=== PATIENT | male | born 1950 | race Caucasian/White ===

== ENCOUNTER 2023-08-17 12:28 | Outpatient (CLI) | payer OTHER, SELFPAY ==
--- NOTE | ~2023-08-17 | PE_ITS ---
EXAMINATION: PET_PETPSMAST_PT DATE: 08/17/2023 15:20 INDICATION: Prostate cancer TECHNIQUE: 9.4 mCi of pipflufolastat F-18 (18-F-DCFPyL) was administered i.v. Low dose computed rosalina graphy (CT) images were acquired from the base of the brain to the base of the brain to the proximal thighs for attenuation correction and anatomic localization. Positron emission tomography (PET) image s were acquired in the same distribution beginning 90 minutes after injection. Images including fused PET/CT images were reconstructed in axial, coronal, and sagittal planes. Automated exposure control technique was employed. The dose-length product was 1203.34mGy-cm. COMPARISON: Bone scan and CT abdomen and pelvis dated 01/26/2017 FINDINGS: Head/neck: Typical pattern of symmetric physiologic increased activity in the lacrimal, parotid and submandibula r glands as well as along the mucosa of the nasal and oral cavities, the raj-, naso- and hypopharynx, the glottis and esophagus. There is also a typical pattern of symmetric tiny foci of mild likely phy siologic neural ganglia uptake at a few bilateral cervical neural foramina. There is asymmetric mild uptake in the right thyroid lobe with maximal SUV of 3.7 peripheral to a 2.4 similar hypodense right thyroid nodule. No pathologically enlarged cervical lymphadenopathy or other suspicious foci of incre ased uptake in the visualized head or neck. Chest: Respiratory motion in the lungs. No suspicious pulmonary nodules, pneumonia, pulmonary edema or pleur al effusion. Heart size is normal. Atherosclerotic coronary artery calcification. Aortic valve calcif ic location. No pericardial effusion. Thoracic aorta is normal in caliber. No pathologically enlarged or PSMA avid thoracic lymphadenopathy. Abdomen/pelvis/proximal thighs: Physiologic renal accumulation and excretion of activity in the kidneys, bladder and along portions o f ureters. 4.4 cm exophytic cyst arising from the posterior medial lower pole of the right kidney. Po stoperative change of prior prostatectomy with a few surgical clips at the anterior prostatectomy bed . There is mild uptake in the region of the prostatectomy bed with maximal SUV of 7.5 without discret e nodular radiologic correlate. The soft tissues and surgical clips appear unchanged on CT when ericka red with the prior imaging. Additional surgical clips the left and right hemipelvis likely related to associated bilateral pelvic lymph node dissections. Normal degree and slightly heterogenous pattern of increased uptake throughout the liver and spleen without radiologic correlate or dominant PSMA prachi d lesion. The gallbladder, pancreas and bilateral adrenal glands are normal. Moderate uptake scattere d throughout the bowels with typical duodenal and proximal jejunal predominance and without radiologi c correlate, also likely physiologic. There is prominent scattered colonic diverticulosis with a sigm oid predominance without adjacent inflammatory change to suggest diverticulitis. No other abnormal fo ci of increased uptake or pathologically enlarged lymphadenopathy in the abdomen, pelvis or proximal thighs. 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 Severe spondylosis scattered throughout the cervical, thoracic a nd lumbar spine. No suspicious lytic, blastic or abnormally PSMA avid bone lesions identified. IMPRESSION: 1. Postoperative change of prior prostatectomy and bilateral pelvic lymph node dissections. There is mild uptake at the prostatectomy bed without appreciable change in on CT imaging. This could be due t o very early local recurrence or artifact from a minimal amount of urine activity. No other suspiciou s PSMA avid bone or soft tissue lesions suspicious for metastatic disease. 2. Mild uptake in the right thyroid lobe peripheral to an indeterminate 2.4 cm
== END 2023-08-17 12:29 | disposition home or self-care (01) ==
PROVIDERS: PCP Family Medicine Adolescent Medicine; Visit Provider Urology
DX: C61 Malignant neoplasm of prostate (principal); Z90.79 Acquired absence of other genital organ(s); Z98.890 Other specified postprocedural states; E04.1 Nontoxic single thyroid nodule
CPT/HCPCS: 78815; A9595

== ENCOUNTER 2023-08-31 10:02 | Outpatient (CLI) | payer OTHER, SELFPAY ==
--- NOTE | ~2023-08-31 | US_ITS ---
EXAMINATION: US thyroid DATE: 08/31/2023 10:19 INDICATION: Nontoxic single thyroid nodule. TECHNIQUE: Multiple ultrasound images of the thyroid were obtained. COMPARISON: PET/CT 08/17/2023 FINDINGS: The right thyroid lobe measures 5.5 x 2.4 x 1.7 cm. The left thyroid lobe measures 3.9 x 1.3 x 1.4 c m. In the right thyroid lobe, there is a 2.9 cm solid, hypoechoic, wider than tall nodule with irreg ular margin without echogenic foci (TI-RADS TR4). In the right thyroid lobe, there is a 10 mm solid, hyperechoic, wider than tall nodule with lobulated margin without echogenic foci (TR4). In the left t hyroid lobe, there is a 5 mm solid, hypoechoic, wider than tall nodule with smooth margin without ech ogenic foci (TR4). IMPRESSION: 1. Multinodular goiter. Ultrasound-guided fine-needle aspiration of the 2.9 cm right thyroid nodule i s recommended. Reviewed, dictated and finalized at location A. ING MECHANIC IMPRESSION: 1. Multinodular goiter. Ultrasound-guided fine-needle aspiration of the 2.9 cm right thyroid nodule is recommended.
== END 2023-08-31 10:03 ==
PROVIDERS: PCP Urology; Visit Provider Urology
DX: E04.2 Nontoxic multinodular goiter (principal)
CPT/HCPCS: 76536

== ENCOUNTER 2023-10-13 12:03 | Outpatient (CLI) | payer OTHER, SELFPAY ==
--- NOTE | ~2023-10-13 | US_ITS ---
EXAMINATION: US FNA w image guidance DATE: 10/13/2023 13:32 INDICATION: Nontoxic single right thyroid nodule TECHNIQUE: A time-out was performed to verify the patient's name, date of , and procedure to be performed . The procedure and its benefits and risks were discussed with the patient. Risks specifically discus sed included bleeding and infection. The patient understood the risks and agreed to proceed. The neck was prepped and draped in the usual sterile manner. 3 mL 1% lidocaine was used for local anesthesia . 9 passes were made with a 25G needle into the lesion. Appropriate needle location was documented with continuous sonographic guidance. A sterile bandage was applied. There were no immediate compli cations. FINDINGS: Grayscale ultrasound images demonstrate biopsy needles advanced into a 2.8 cm TI RADS 4 solid right t hyroid nodule. IMPRESSION: 1. Successful ultrasound-guided fine needle aspiration of the 2.8 cm TI RADS 4 right thyroid nodule of concern. Reviewed, dictated and finalized at location A. CTOR OF SAFETY AND SECURITY
== END 2023-10-13 12:04 | disposition home or self-care (01) ==
PROVIDERS: PCP Family Medicine Adolescent Medicine; Visit Provider Family Medicine Adolescent Medicine
DX: E04.1 Nontoxic single thyroid nodule (principal)
CPT/HCPCS: 10005; 88172; 88173; 88305

== ENCOUNTER 2025-04-19 12:36 | Outpatient (CLI) | payer OTHER, SELFPAY ==
--- NOTE | ~2025-04-19 | PE_ITS ---
EXAMINATION: PET_PETPSMAST_PT DATE: 04/19/2025 15:09 INDICATION: Prostate cancer TECHNIQUE: 5.27 mCi of Illucix Ga-68(70-Pc-lrtcoddtvz) was administered i.v. Low dose computed tomog gay (CT) images were acquired from the base of the brain to the base of the brain to the proximal t highs for attenuation correction and anatomic localization. Positron emission tomography (PET) images were acquired in the same distribution beginning 88 minutes after injection. Images including fused PET/CT images were reconstructed in axial, coronal, and sagittal planes. Automated exposure control t echnique was employed. The dose-length product was 1306.91mGy-cm. COMPARISON: 08/17/2023 FINDINGS: Head/neck: Typical pattern of symmetric physiologic increased activity in the lacrimal, parotid and submandibula r glands as well as along the mucosa of the nasal and oral cavities, pharynx and hypopharynx. Again s een is mild mild uptake with maximal SUV of 4.2 in the right thyroid lobe peripheral to a 2.2 cm hypo dense nodule. No pathologically enlarged cervical lymphadenopathy or other suspicious foci of increas ed uptake in the visualized head or neck. Chest: Mild respiratory motion and mild dependent atelectasis in the bilateral lungs. No suspicious pulmonar y nodules, pneumonia, pulmonary edema or pleural effusion. Heart size is normal. Atherosclerotic aneesh nary artery and aortic valve calcifications. No pericardial effusion. Thoracic aorta is normal in asael iber. No pathologically enlarged or PSMA avid thoracic lymphadenopathy. Abdomen/pelvis/proximal thighs: Physiologic renal accumulation and excretion of activity in the kidneys, decompressed bladder and tabatha ng portions of ureters. Status post prostatectomy with no change in configuration of a few surgical c lips at the prostatectomy bed. Persistent mild uptake with maximal SUV of 7.3 at the prostatectomy be d without discrete nodularity which could represent recurrent disease or minimal urine activity. Norm al degree and slightly heterogenous pattern of increased uptake throughout the liver and spleen witho ut radiologic correlate or dominant PSMA avid lesion. The gallbladder, pancreas and bilateral adrenal glands are normal. Moderate uptake scattered throughout the bowels with typical duodenal and proxima l jejunal predominance and without radiologic correlate, also likely physiologic. Prominent scattered diverticulosis without adjacent from trace stranding to suggest diverticulitis. Surgical clips in th e left and right pelvis consistent with prior pelvic lymph node dissections. No other abnormal foci o f increased uptake or pathologically enlarged lymphadenopathy in the abdomen, pelvis or proximal thig hs. Musculoskeletal: Moderate left-sided and advanced right-sided glenohumeral osteoarthritis. Severe cervical, thoracic a nd lumbar spondylosis. No suspicious lytic, blastic or abnormally PSMA avid bone lesions. IMPRESSION: 1. Status post prostatectomy and bilateral pelvic lymph node dissections. Unchanged mild uptake at th e prostatectomy bed without appreciable change on CT imaging. Differential remains clearly localized recurrence versus minimal urine activity. No other lesions suspicious for metastatic disease. 2. No significant change in mild uptake in the right thyroid peripheral to an indeterminate thyroid n odule measuring 2.8 cm at the time of the intervening biopsy on 10/13/2023. Correlate with pathology f rom the biopsy. Reviewed, dictated and finalized at location A. IMPRESSION: 1. Status post prostatectomy and bilateral pelvic lymph node dissections. Uncha nged mild uptake at the prostatectomy bed without appreciable change on CT imag ing. Differential remains clearly localized recurrence versus minimal urine act ivity. No other lesions suspicious for metastatic disease. 2. No significant change in mild uptake in the right thyroid peripheral to an i ndeterminate thyroid nodule measuring 2.8 cm at the time of the intervening bio psy on 10/13/2023. Correlate with pathology from the biopsy.
--- OUTSIDE RECORDS SUMMARY | 2025-04-19 12:46 | XMS_ITS ---
Author Name Yvonne GOMEZ, MRS. Humphreys npal Address [address] [place] [address] Phone [phone] Organization [facility] Care Team Providers Care Rn Otolaryngology Name Role Phone YvonneNikitagabriella Unavailable [phone] BRITTNEE PHILIP Unavailable [phone] Madeline Gill Unavailable [phone] Jonatan Madden Unavailable [phone] Reason for Referral Not Available Allergies, adverse reactions, alerts No known allergies History of medication use Medication Class Instructions Start Date End Date hydroCHLOROthiazide 25 mg Tab TAKE 1 TAB LET BY MOUTH EVERY DAY 2024-06-05 No Data Available Lovastatin 40 mg Tab TAKE 1 TABLET BY MO UT EVERY DAY 2024-06-05 No Data Available Telmisartan 80 mg Tab TAKE 1 AND 1/2 TAB LETS BY MOUTH DAILY 2024-06-05 No Data Available amLODIPine Besylate 10 mg Tab TAKE 1 TAB LET BY MOUTH EVERY DAY 2024-08-31 No Data Available LORazepam 0.5 mg Tab TAKE 1 TABLET BY MO UTH EVERY DAY NEEDED FOR ANXIETY 2024-08-22 No Data Available Sildenafil Citrate 100 mg Tab No Data Available 2023-09 No Data Available Problem List Problem Status Onset Date Resolved Date Synopsis HTN (hypertension) Active 2025-01-16 N/A N/A Skin cancer (melanoma) Active 2025-01-16 N/A N/ A Anxiety Active 2025-01-16 N/A N/A HLD (hyperlipidemia) Active 2025-01-16 N/A N/A Morbidly obese Active 2025-01-16 N/A N/A Encounters Encounters Type Facility Date of Service Diagnosis/Co mplaint Home visit for evaluation and management of new patient requiring medically appropriate examination and low level of medical decision making. If using time, at least 30 minutes total time on encounter [facility] 01/16/2025 Essential (primary) hypertensionMalignant melanoma of skin, unspecifiedAnxiety disorder, unspecifiedHyperlipidemia, unspecifiedMorbid (severe) obesity due to excess caloriesBody mass index (bmi) 38.0-38.9, adult Home visit for evaluation and management of new patient requiring medically appropriate examination and low level of medical decision making. If using time, at least 30 minutes total time on encounter [facility] 01/16/2025 Essential (primary) hypertension Home visit for evaluation and management of new patient requiring medically appropriate examination and low level of medical decision making. If using time, at least 30 minutes total time on encounter [facility] 01/16/2025 Essential (primary) hypertension Home visit for evaluation and management of new patient requiring medically appropriate examination and low level of medical decision making. If using time, at least 30 minutes total time on encounter [facility] 01/16/2025 Essential (primary) hypertension Vital Signs Date of Collection Vitals 2025-01-16 11:45:00 Height - 170.18 cmWe ight - 111.13 kgBody Mass Index (BMI) - 38.37 kg/m2BP Diastolic - 86.0 mm[Hg]BP Systolic - 132.0 mm[Hg]Heart Rate - 69.0 /minRespiratory Rate - 16.0 /minBody Temperature - 36.72 CelO2 % BldC Oximetry - 96.0 % Social History Sex Male History of Procedures Procedures Service Procedure code Service date Servicing provider Phone# Home visit for evaluation and management of new patient requiring medically appropriate examination and low level of medical decision making. If using time, at least 30 minutes total time on encounter [id number] 2025-01-16 No Data Available No Data Availa ble Most recent systolic blood pressure 130 -139 mm Hg 3075F 2025-01-16 No Data Available No Data Availa ble Most recent dystolic blood pressure 80-89 mm Hg 3079F 2025-01-16 No Data Available No Data Availa ble Advance care planning discussion documented in medical record [id number] 2025-01-16 No Data Available No Data Avai nathan Functional Status Functional Category Effective Dates continues to drive 2025-01-16 lives at home alone; independent with AD L's 2025-01-16 Daughter lives nearby and watches mahendra bradley 2025-01-16 Mental Status Status Date no cognitive issues 2025-01-16 Assessments Date of Service Assessments 2025-01-16 11:45:00 HTN (hypertension)Sk in cancer (melanoma)AnxietyHLD (hyperlipidemia)Morbidly obese Plan of Care Date of Service Plans 2025-01-16 11:45:00 PCP Q 6 months follo w up with annual labschronic; controlledcontinue amlodipine 10 mg once daily, Hctz 25 mg once daily and telmisartan 80 mg 1.5 mg once daily.lower lip - radiation treatment started 5appt 01/18/2025 for non healing lesion on right adventism regionmanaged by dermatologydiscussed the use of sunscreen when outsidechronic; stablecontinue lorazepam 0,5 mg once daily PRNmanaged by PCPchronic; stablecontinue lovastatin 40 mg once dailyheart healthy diet; encouraged exercisediscussed diet and exercise Health Concerns Date Concern 2025-01-16 Healthy House Calls is a service that involves a physician or advanced practice provider conducting comprehensive assessments in your patient s home or virtually to address crucial areas such as chronic conditions, quality gaps, social concerns, fall risk prevention, and various screenings. Please note that your patient will remain attributed to you even though they are participating in this service. If you have any questions, please reach out directly to our team at the phone number above.Your patient, Handy Levy, 1950, was seen today for a Healthy House Call visit. Patient read rights and responsibilities and consented to treatment. The purpose of this summary is to update you on the patient's current health status and share any relevant findings from the examination. 2025-01-16 Skin cancer lower li p - first radiation treatment was on 01/05/2025 and next treatment 01/16. Treatments are 3 x a week and he to get a total of 20 treatments. Has an appt on 01/19/2024 for a lesion on the right side of the adventism area.
--- OUTSIDE RECORDS SUMMARY | 2025-04-19 12:46 | XMS_ITS | Clinical Summary ---
Author Organization [facility] Address [address] [place] [address] Care Team Providers Care Family Manager Name Role Phone Zaki Goodrich MD Primary Care Provider + Source Comments [facility]non-owned Affiliates and Associated Physician Practices is amultiple site organization consisting of ambulatory clinics and hospital sitesin [place], [place], [place] and [place]. This disclosure is being madepursuant to the Care Everywhere program and may not contain all information available regarding this patient. Last updated 18.[facility] Allergies No known active allergies Medications * Be aware that medications may not be up to date on this document. Alwaysverify current medications with the patient. losartan - hydrochlorothiazide (HYZAAR) 50-12.5 MG tablet Take 1 Tab by mouth once daily. Active atorvastatin (LIPITOR) 10 MG tablet Take 10 mg by mouth at bedtime. Active nisoldipine CR 24hr (SULAR) 17 MG TB24 Take by mouth once daily. 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 Gender Identity Not on file Sexual Orientation Not on file Last Filed Vital Signs Vital Sign Reading Time Taken Comments Blood Pressure 130/65 12/26/2011 6:34 AM CDT Pulse 63 12/26/2011 6:34 AM CDT Temperature 36.6 C (97.8 F) 12/25/2011 9:01 PM CDT Respiratory Rate 10 12/26/2011 6:00 AM CDT Oxygen Saturation 96% 12/26/2011 6:34 AM CDT Inhaled Oxygen Concentration - - Weight 117.9 kg (260 lb) 12/25/2011 9:01 PM CDT Height 170.2 cm (5' 7) 12/25/2011 9:01 PM CDT Body Mass Index 40.72 12/25/2011 9:01 PM CDT Plan of Treatment Health Maintenance Due Date Last Done Comments COLOGUARD (AGES 45-75) - COL ON CA SCREENING 1950 COLON MONITORING 1950 COLONOSCOPY - COLON CA SCREENING 1950 CT COLONOGRAPHY - COLON CA SCREENING 1950 Colorectal Cancer Screening 1950 FIT - COLON CA SCREENING 1950 FLEX SIG - COLON CA SCREENING 1950 MEDICARE AWV 12 MONTHS 1950 HEPATITIS C SCREENING 02/04/1969 DTAP/TDAP/TD VACCINES (1 - Tdap) 1970 PNEUMOCOCCAL VACCINE 50+ (1 of 1 - PCV) 2001 ZOSTER VACCINE (1 of 2) 2001 Respiratory Syncytial Virus (RSV) Vaccine Pt: or over 60 yrs (1 - Risk 60-74 years 1-dose series) 2011 COVID-19 VACCINE ( - 2023-2 5 season) 2024 DEPRESSION SCREENING 09/21/2024 INFLUENZA VACCINE (#1) 2025 HEPATITIS B VACCINE Aged Out No longe r eligible based on patient's age to complete this topic HIB VACCINE Aged Out No longer eligi ble based on patient's age to complete this topic HPV VACCINE Aged Out No longer eligi ble based on patient's age to complete this topic MENINGOCOCCAL (Group B) VACC INE SHARED DECISION-MAKING Aged Out No longer eligibl e based on patient's age to complete this topic MENINGOCOCCAL GROUPS A/C/Y/W VACCINE Aged Out No longer eligible b ased on patient's age to complete this topic Insurance [facility] [place] [id number] SELF PAY NO INSURANCE Member Subscriber Plan / Payer (Ef fective for All Dates) Name:Handy Levy Member ID:Not on file Relation to Subscriber:Not on file Name:HANDY LEVY Subscriber ID:Not on file Address: [address] [place] [address] Payer ID:Not on file Group ID:Not on file Type:Self Pay Address: [place], [place] Care Teams Family Manager Relationship Specialty Start Date End Date Zaki Goodrich MD [address] [facility] [address] [place] [address] PCP - General 12/25/11
== END 2025-04-19 12:37 | disposition home or self-care (01) ==
PROVIDERS: PCP Family Medicine Adolescent Medicine; Visit Provider Radiology Radiation Oncology
DX: C61 Malignant neoplasm of prostate (principal); Z51.0 Encounter for antineoplastic radiation therapy; Z19.1 Hormone sensitive malignancy status; Z90.79 Acquired absence of other genital organ(s); Z48.816 Encounter for surgical aftercare following surgery on the genitourinary system
CPT/HCPCS: 78815; A9596

== ENCOUNTER → 2025-05-16 12:08 | Outpatient (CLI) | payer OTHER, SELFPAY ==
--- NOTE | ~2025-05-16 | XR_ITS ---
EXAMINATION: XR foot LT min 3V DATE: 05/16/2025 12:29 INDICATION: Pain in left foot, first digit TECHNIQUE: 4 images of the left lower obtained. COMPARISON: None. FINDINGS: Bone mineralization is within normal limits. No fracture. No dislocation. Moderate joint space narrowing in the first metatarsophalangeal joint with adjacent soft tissue swelling. Soft tissue swelling about the left foot. Small plantar calcaneal spur. IMPRESSION: 1. No fracture. No dislocation. 2. Moderate joint space narrowing in the first metatarsophalangeal joint with adjacent soft tissue swelling. If symptoms persist or worsen, consider a short-term follow-up study or additional imaging for further assessment. Reviewed, dictated and finalized at location Q. IMPRESSION: 1. No fracture. No dislocation. 2. Moderate joint space narrowing in the first metatarsophalangeal joint with a djacent soft tissue swelling. If symptoms persist or worsen, consider a short-term follow-up study or additio nal imaging for further assessment.
== END ==
LOC: EXPCRAD 12:10
PROVIDERS: PCP Family Medicine; Visit Provider Family Medicine
DX: M20.5X2 Other deformities of toe(s) (acquired), left foot (principal)
CPT/HCPCS: 73630

== ENCOUNTER 2025-08-21 00:14 | Day surgery (SDC) | payer OTHER, SELFPAY ==
[2025-08-02 09:04] VITALS: BMI 36.8
--- OUTSIDE RECORDS SUMMARY | 2025-08-21 00:17 | XMS_ITS | Clinical Summary ---
Author Organization [facility] Address [address] [facility] [place] [address] Care Team Providers Care Supervisor Show Operations Name Role Phone Zaki Goodrich MD Primary Care Provider + Source Comments [facility],non-owned Affiliates and Associated Physician Practices is amultiple site organization consisting of ambulatory clinics and hospital sitesin [place], [place], [place] and [place]. This disclosure is being madepursuant to the Care Everywhere program and may not contain all information available regarding this patient. 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 [place] [id number] SELF PAY NO INSURANCE Member Subscriber Plan / Payer (Ef fective for All Dates) Name:Handy Levy Member ID:Not on file Relation to Subscriber:Not on file Name:HANDY LEVY Subscriber ID:Not on file Address: [address] [place] [address] Payer ID:Not on file Group ID:Not on file Type:Self Pay Address: [place], [place] Care Teams Supervisor Show Operations Relationship Specialty Start Date End Date Zaki Goodrich MD [address] [facility] [address] [place] [address] PCP - General 12/25/11
--- OUTSIDE RECORDS SUMMARY | 2025-08-21 00:17 | XMS_ITS ---
Author Name Yvonne GOMEZ, MRS. Humphreys npal Address [address] [place] [address] Phone [phone] Organization [facility] ([facility]) Care Team Providers Care Surgical Coder Name Role Phone YvonneNikitagabriella Unavailable [phone] BRITTNEE PHILIP Unavailable [phone] Madeline Gill Unavailable [phone] Jonatan Madden Unavailable [phone] Reason for Referral Not Available Allergies, adverse [...] least 30 minutes total time on encounter [facility] 01/16/2025 Essential (primary) hypertensionMalignant melanoma of skin, unspecifiedAnxiety disorder, unspecifiedHyperlipidemia, unspecifiedMorbid (severe) obesity due to excess caloriesBody mass index (bmi) 38.0-38.9, adult Home visit for evaluation and management of new patient requiring medically appropriate examination and low level of medical decision making. If using time, at least 30 minutes total time on encounter [facility] 01/16/2025 Essential (primary) hypertension Home visit for evaluation and management of new patient requiring medically appropriate examination and low level of medical decision making. If using time, at least 30 minutes total time on encounter [facility] 01/16/2025 Essential (primary) hypertension Home visit for evaluation and management of new patient requiring medically appropriate examination and low level of medical decision making. If using time, at least 30 minutes total time on encounter [facility] 01/16/2025 Essential (primary) hypertension Vital Signs Date [...] least 30 minutes total time on encounter [id number] 2025-01-16 No Data Available No Data Availa [...] 01/18/2025 for non healing lesion on right taoist regionmanaged by dermatologydiscussed the use of sunscreen [...] lesion on the right side of the taoist area.
--- OUTSIDE RECORDS SUMMARY | 2025-08-21 00:17 | XMS_ITS | Data Portability ---
Author Organization [place] [facility], Main Office Address [address] [place] [address] Care Team Providers Care Format Proofreader Name Role Phone NIKITA CAMPO Primary Care Provider NIKITA CAMPO Referring Provider Assessment Encounter Date Assessment Date Assessment LastModified by Organization Details LastModified Time 03/09/2023 03/09/2023 Patient has severe primary osteoarthritis of the right knee joint. He has [id number] changes in medial and patellofemoral compartments which appeared to be fairly stable compared to x-rays done 1 year ago. We did talk about treatment options today he wanted proceed with cortisone therefore under sterile conditions I injected the patient's right knee joint in the office with 4 cc 0.5% ropivacaine and 20 mg of Kenalog. Patient tolerated procedure well. We did talk about the possibility of gel shots if he thinks that the cortisone does not give him good relief we could consider this. Will see him back in 6 weeks to see what impact that treatment has had. I have also prescribed meloxicam 15 mg daily at his request he will continue with current conservative measures. We talked about total knee arthroplasty he declined he wants to get by with conservative measures for now. He voiced understanding and agrees above plan will call for any further problems difficulties or questions. [email or web address] Not available 03/09/2023 10:12:31 Plan of Treatment Reminders Order Date Submit Date Provider Last Modified By Organization Details Last Modified Time Details Appointments None recorded. Lab None recorded. Referral None recorded. Procedures injection/a spiration joint/bursa (PROC) - in office procedure, administere d by provider 2022 023 [email or web address] In-Office Order, Internal Use Only DO Not Attach Compendium DO Not Attach Compendium, Do Not Delete/merge, 227[address] 3 09:56:15 Surgeries None recorded. Imaging XR, knee 2022 023 [email or web address] [facility], [address], [place], [address], 3 11:39:08 Medication Orders Kenalog 10 mg/mL suspension for injection 2022 023 [email or web address] [facility] [id number], [place], [address], 3 11:39:08 ropivacaine (PF) 5 mg/mL (0.5 %) injection solution 2022 023 [email or web address] [facility] [id number], [place], [address], 3 11:39:08 meloxicam 15 mg tablet 2022 023 [email or web address] [facility] [id number], [place], [address], 11:39:08 Patient TargetsNo targets recorded. Patient InstructionsNo instructions recorded. Reason for Referral None Reported. Results Created Date Observation Date Name Description Value Unit Range Abnormal Flag Note LastModifiedBy Organization Detail LastModifiedTime 03/19/20 22 XR, knee, 3 view No observ ation record ed. [id number] [facility] [address], [place], [address], 11/20/2022 01:28:21 03/09/20 23 XR, knee No observ ation record ed. [email or web address] [facility] [address], [place], [address], 03/09/2023 10:15:00 Result Notes None recorded. Problems Name Problem SNOMED Code Status Onset Date Resolution Date Notes Provider Name and Address Organization Details Recorded Time Osteoarthr itis of right knee joint 7020144434063 00 Active 2021 [facility] Available [facility] 01:26:15 Pain of right knee joint 1412417166814 00 Active 2022 SHANA Hernandez [place] - [facility] [employer] 3 09:51:38 Problem Notes None recorded. Medical Equipment None Reported. Medications Name Sig Start Date Stop Date Status Note LastModified by Organization Details LastModified Time prednisone 10 mg tablet 03/19 completed Not Available Not Available Not Available meloxicam 15 mg tablet TAKE 1 TABLET BY MOUTH EVERY DAY active Not Available Not Available No t Available lovastatin 40 mg tablet TAKE ONE TABLET BY MOUTH ONCE DAILY active Not Available Not Available No t Available sildenafil 100 mg tablet TAKE 1 TABLET BY MOUTH DAILY NEEDED active Not Available Not Available No t Available prednisone 10 mg tablets in a dose pack Take 1 tab by mouth, 3 times a day for 3 daysTake 1 tab by mouth 2 times a day for 2 daysTake 1 tab by mouth once a day for 1 day active Not Available Not Available No t Available Kenalog 10 mg/mL suspension for injection Take 20 mg by injection route. 2022 active [facility]: [phone] Not Available Not Available Not Available amlodipine 10 mg tablet TAKE ONE TABLET BY MOUTH ONCE DAILY active Not Available Not Available No t Available telmisartan 80 mg tablet TAKE 1 AND 1/2 TABLET BY MOUTH DAILY active Not Available Not Available No t Available hydrochloro thiazide 25 mg tablet TAKE 1 TABLET BY MOUTH EVERY DAY active Not Available Not Available No t Available ropivacaine (PF) 5 mg/mL (0.5 %) injection solution Take 20 mg by injection route. 2022 active [facility] [phone] Not Available Not Available Not Available Vitals Date Recorded Body height Body mass index (BMI) Body weight Provider Name and Address Organization Details Last Updated DateTime 03/09/2023 167.64 cm 42 kg/m2 265659.02 con SHANA Hernandez [place] [facility] [employer] 03/09/2023 09:50:51 Date Recorded Body mass index (BMI) Body height Body weight Provider Name and Address Organization Details Last Updated DateTime 03/19/2022 40.7 kg/m2 170.18 cm 315359.02 g Not Available [facility] 11/20/2022 01:25:20 Date Recorded Body mass index (BMI) Body height Body weight Provider Name and Address Organization Details Last Updated DateTime 04/29/2022 42 kg/m2 167.64 cm 211347.02 g Not Available [facility] 11/20/2022 01:25:20 Social History None recorded. Functional Status Question Answer Note LastModified by Organizat ion Details LastModified Time What is your level of alcohol consumption? Occasional [id number] Information not available 11/20/2022 Mental Status None recorded. Family History Relationship Description Onset Age of this Age Resolved Age Notes LastModified by Organization Details LastModified Time Father Heart disease [email or web address] [id number] Not available 11/20/2022 01:25:07 Father Cerebrovascu lar accident [id number] Not available 11/20/2022 01:25:07 Mother Family history of malignant neoplasm [id number] Not available 11/20/2022 01:25:07 Brother Diabetes mellitus [id number] Not available 11/20/2022 01:25:07 Medical History Condition Response CANCER: SPECIFY Y Past Encounters Encounter ID Performer Location Encounter Start Date Encounter Closed Date Diagnosis/Indication Diagnosis SNOMED-CT Code Diagnosis ICD10 Code Diagnosis IMO Codes Diagnosis Note [id number] MD SAULO [facility] [address] [place] [address] 03/19/2022 00:00:00 03/19/2022 12:54:36 [id number] Kai Viramontes MD [facility] [address] [place] [address] 04/29/2022 00:00:00 04/29/2022 14:11:32 [id number] MD [facility] [address] [place] [address] 03/09/2023 09:41:31 03/09/2023 11:13:02 Osteoarthritis of right knee joint 5522069171 41295 M17.11 Pain of ri ght knee joint 6580357181 28177 M25.561 Health Concerns Section Related Observation LastModified by Organization Detai ls LastModified Time None Recorded Concern Status LastModified by Organization Details LastModified Time None Recorded Advance Directives Directive None Recorded Payers Insurance Date Sequence Insurance Name Policy Number Policy Harris Covered Member ID Harris Member ID Guarantor Name 03/09/2023 1 [facility] (MEDICARE REPLACEMENT HMO) [id number] Handy Levy [id number] Handy Leonilaoscar Notes Date Note Type Note Provider Name and Address Organization Details Recorded Time 03/09/2023 text/html Patient returns complaining of right knee pain. He has severe primary osteoarthritis with known advanced changes mostly in the medial patellofemoral compartments. We have not seen him for over 10 months denies any new specific trauma or injury to the knee states lately it has been swelling a bit he has aching pain with activity but really no pain at night does not keep him awake. He states he is not as active as he would like to be sits for the most part because of his right knee pain. We have talked about total knee arthroplasty previously however he has declined we talked about it again today he states he is afraid to do it would rather get by with conservative measures. We have talked about multiple treatment options including oral anti-inflammatories cortisone versus gel shots today he would like to have his right knee injected. Does lack a little extension with his right knee we will get new x-rays today to follow the progression of the osteoarthritis. Currently he is not taking any anti-inflammatories. DIONI Acosta [address] [facility], [facility] [address], [place], [address], [facility] [email or web address] 03/09/2023 10:15:23
[2025-08-21 11:29] VITALS: BP 136/82; PULSE 69; RESP 17; TEMP 36.2; O2SAT 100
[2025-08-21] MEDS: LACTATED RINGERS 1,000 ML 150 ML IV CONT (11:38)
--- NOTE | 2025-08-21 12:10 | P.PNAN_ITS ---
Anes - Initial Pre Proc Eval Procedure: Operation Date: 08/21/25 13:00 Proposed Procedures p Screening Colonoscopy - Dorina Reid MD Date/Time: 08/21/25 12:10 Surgeon: Dorian Reid MD Pre Op Diagnosis: Encounter for screening for malignant neoplasm of Patient Data Age: 75 Gender: M Height: 1.7 m Weight: 103.8 kg Last Vital Signs Temp 36.2 C L 08/21/25 11:29 Pulse 69 08/21/25 11:29 Resp 17 08/21/25 11:29 BP 136/82 08/21/25 11:29 Pulse Ox 100 08/21/25 11:29 O2 Del Method Room Air 08/21/25 11:29 Allergies Allergy/AdvReac Type Severity Reaction Status Date / Time No Known Allergies Allergy Unknown NONE Verified 08/21/25 11:21 Home Medications ?Medication ?Instructions ?Recorded ?Confirmed ?Type lovastatin 40 mg tablet See Rx Instructions .Route 0 05/24/25 08/02/25 Rx .COMPLEX #90 tabs telmisartan 80 mg tablet 120 mg (1.5 x 80 mg) PO ESTELA Y #135 05/24/25 08/02/25 Rx tabs hydrochlorothiazide 25 mg tablet See Rx Instructions . Route 05/25/25 08/02/25 Rx .COMPLEX #90 tabs amlodipine 10 mg tablet See Rx Instructions .Route 0 05/26/25 08/02/25 Rx .COMPLEX #90 tabs escitalopram oxalate 5 mg tablet 5 mg PO DAILY #90 tab s 06/11/25 08/02/25 Rx (Lexapro) lorazepam 0.5 mg tablet 0.5 mg PO DAILY PRN anxiety #30 08/08/25 Rx tabs Patient hx anesthesia problems: none Family hx anesthesia problems: none Results Review: All pre-operative results and documents have been reviewed as part of the pre- operative evaluation. [facility] Past Medical History Medical History (Updated 08/21/25 @ 12:10 by Tim Russo DO) Pure hypercholesterolemia, unspecified Hypertension Prostate cancer Anxiety Surgical History Surgical History History of prostatectomy (2000) Family History Family History Father Acute myocardial infarction Cerebrovascular accident Heart disease Hypertension Other Malignant neoplasm of prostate Social History Social History Smoking status: Never smoker Second hand tobacco smoke exposure: No Alcohol intake: current Drinks per week: 8 Substance use: never Substance use type: does not use Lack of Transportation: No Lack of Food: Never True Current Housing: I Have Housing Concerned About Future Housing: No Difficulty Paying Gas/Electric Bills: YES Difficulty Paying for Meds: No Currently Unemployed: No Education: High School Diploma/GED Difficulty w/ Childcare or Family Care: YES Living arrangements: alone Occupation/Education: retired Gender identity (if verbalized by the patient): Male Sexual Orientation (if Verbalized by the Patient): Straight or Heterosexual Spiritual care concerns: No Agree to blood products: Yes Anes - Eval Final PreProcedure Day of Procedure 08/21/25 12:10 Patient weight: obese Heart: regular rate and rhythm Lungs: clear to auscultation Airway: Mallampati scale class II Neurological: alert and oriented Last oral intake: >/= 8 hours ASA classification: III Emergent: no Anesthetic plan: proceed Anesthesia type and monitoring: general GIVS and standard monitoring Results Review: All pre-operative results and documents have been reviewed as part of the pre- operative evaluation. Informed Consent: The patient's anesthetic plan and its attendant risks and benefits were discussed with the patient/family/POA. Questions were solicited and answers provided to the satisfaction of the patient/family/POA.
--- NOTE | 2025-08-21 12:39 | P.HP_ITS ---
History of Present Illness History of Present Illness Consent: Risks, benefits, and alternatives have been discussed and questions answered. Patient agrees to proceed with procedure. Chief complaint: Encounter for screening for malignant neoplasm of Narrative: Handy Levy is a 75 year old male here for screening colonoscopy Review of Systems Review of Systems: All systems reviewed & are unremarkable except as noted in HPI and below PMFSH Past Medical History Medical History (Updated 08/21/25 @ 12:40 by Dorian Reid MD) Colon cancer screening Pure hypercholesterolemia, unspecified Hypertension Prostate cancer Anxiety Surgical History Surgical History History of prostatectomy (2000) Family History Family History Father Acute myocardial infarction Cerebrovascular accident Heart disease Hypertension Other Malignant neoplasm of prostate Social History Social History Smoking status: Never smoker Second hand tobacco smoke exposure: No Alcohol intake: current Drinks per week: 8 Substance use: never Substance use type: does not use Lack of Transportation: No Lack of Food: Never True Current Housing: I Have Housing Concerned About Future Housing: No Difficulty Paying Gas/Electric Bills: YES Difficulty Paying for Meds: No Currently Unemployed: No Education: High School Diploma/GED Difficulty w/ Childcare or Family Care: YES Living arrangements: alone Occupation/Education: retired Gender identity (if verbalized by the patient): Male Sexual Orientation (if Verbalized by the Patient): Straight or Heterosexual Spiritual care concerns: No Agree to blood products: Yes Meds Home Medications and Allergies Home Medications ?Medication ?Instructions ?Recorded ?Confirmed ?Type lovastatin 40 mg tablet See Rx Instructions .Route 0 05/24/25 08/02/25 Rx .COMPLEX #90 tabs telmisartan 80 mg tablet 120 mg (1.5 x 80 mg) PO ESTELA Y #135 05/24/25 08/02/25 Rx tabs hydrochlorothiazide 25 mg tablet See Rx Instructions . Route 05/25/25 08/02/25 Rx .COMPLEX #90 tabs amlodipine 10 mg tablet See Rx Instructions .Route 0 05/26/25 08/02/25 Rx .COMPLEX #90 tabs escitalopram oxalate 5 mg tablet 5 mg PO DAILY #90 tab s 06/11/25 08/02/25 Rx (Lexapro) lorazepam 0.5 mg tablet 0.5 mg PO DAILY PRN anxiety #30 08/08/25 Rx tabs Allergies Allergy/AdvReac Type Severity Reaction Status Date / Time No Known Allergies Allergy Unknown NONE Verified 08/21/25 11:21 Vital Signs Vital Signs - 24 hr 08/21/25 11:29 Temperature 97.1 F L Pulse Rate 69 Respiratory Rate 17 Blood Pressure 136/82 Pulse Oximetry 100 Oxygen Delivery Room Air Exam Const: General: comfortable and no acute distress HENMT: Face/Nose/Sinus: Normal nares present Eyes: General: appearance normal, both eyes and all related structures Neck: Neck: no JVD Resp: Auscultation: clear to auscultation bilaterally Cardio: Rate: regular rate Rhythm: regular rhythm GI: Inspection: non-distended GI Palp: Yes Soft to palpation Skin: General skin exam: normal color Extrem: General: normal to inspection Psych: Mental Status: mental status grossly normal Assessment and Plan Assessment and plan (1) Colon cancer screening: Code(s): Z12.11 - Encounter for screening for malignant neoplasm of colon Status: Acute Assessment and Plan: colonoscopy
--- NOTE | 2025-08-21 12:52 | S_PTH ---
PATIENT: Handy Levy LOC: [facility] iSlva#:[id number] AGE/SX: 75/M ROOM: RE08/21/[address]: Dorian Reid MD : 1950 BED: DIS: 08/21/2025 SPEC #: [id number] RECD: 08/21/25 13:31 STATUS: JASMINE LEGER #: [id number] DEON: 08/21/25 12:[address]: Dorian Reid DEPT: [facility] Surgical RECD BY: Cindy Mccloud ENTERED: 08/21/25 13:31 SP TYPE: Surgical OTHR DR: Roselia Xavier DO Tissues: A - Colon Polypectomy Procedures: Hematoxylin and Eosin Stain Gross and Microscopic Level 4
[2025-08-21 12:54] VITALS: BP 101/64; PULSE 53; RESP 12; O2SAT 100
[2025-08-21 13:04] VITALS: BP 102/62; PULSE 48; RESP 12; O2SAT 98
[2025-08-21 13:14] VITALS: BP 111/69; PULSE 55; RESP 18; O2SAT 99
== END 2025-08-21 13:22 | disposition home or self-care (01) ==
PROVIDERS: PCP Family Medicine; Referring Provider Family Medicine; Visit Provider Internal Medicine Gastroenterology
PROC: 0DJD8ZZ Inspection of Lower Intestinal Tract, Via Natural or Artificial Opening Endoscopic (ICD-10-PCS; CPT 45378; principal; 2025-08-21 13:00)
DX: Z12.11 Encounter for screening for malignant neoplasm of colon (principal); D12.0 Benign neoplasm of cecum; K57.30 Diverticulosis of large intestine without perforation or abscess without bleeding; K64.8 Other hemorrhoids; E66.9 Obesity, unspecified; Z68.35 Body mass index [BMI] 35.0-35.9, adult
CPT/HCPCS: 45380; 88305; J2003; J2704; J7120